=== PATIENT | female | born 1960 | race Caucasian/White ===

== ENCOUNTER 2019-08-31 09:41 | Outpatient (CLI) | payer BC ==
--- NOTE | 2019-08-31 14:02 | MRI ---
MRI BREAST WITH AND WITHOUT CONTRAST BILATERALLY: History: High risk breast cancer screening. Family history of breast cancer. Comparison: Outside facility mammogram May 2019OctoberSeptember 2012. Findings: Multiplanar multisequence MRI of the breasts was performed prior to and after the intravenous adminis tration contrast. The exam was reviewed on an independent 3-D workstation. Scattered fibroglandular densities. Mild background parenchymal enhancement. No abnormal solid enhancing mass. Multiple small foci of enhancement felt to reflect nodular backgrou nd parenchymal enhancement. Multiple bilateral intraparenchymal cysts. No abnormal foci of nonmass-like enhancement. No internal mammary or axillary adenopathy. No significant pericardial effusion. Ascending aorta measures up to 4.1 cm. Impression: 1. BI-RADS Category 2: Benign. There are numerous small foci of enhancement of the breasts bilaterall y, measuring up to 5 mm, which are nonspecific may reflect nodular background parenchymal enhancement. Continued staggered yearly mammographic and MRI screening recommended. 2. No internal mammary or axillary adenopathy. 3. Mild dilatation of the ascending aorta measuring up to 4.1 cm. Transcribed Date/Time: 08/31/2019 2:12 PM
[2019-08-31] MEDS ORDERED: Magnevist 469MG/ML 20 ML VIAL ONE (15:34)
== END 2019-08-31 09:42 | disposition home or self-care (01) ==
LOC: BICMRI 09:41
PROVIDERS: ATTEND Family Medicine
DX: Z08 Encounter for follow-up examination after completed treatment for malignant neoplasm (principal); Z85.3 Personal history of malignant neoplasm of breast; I77.810 Thoracic aortic ectasia
CPT/HCPCS: 82565; A9579; C8908